=== PATIENT | male | born 1935 | race Caucasian/White ===

== ENCOUNTER 2018-02-20 12:17 | Inpatient (IN) | payer MEDICARE, BC ==
[~2018-02-20] VITALS: Ht 188 cm; Wt 88.5 kg
--- NOTE | ~2018-02-20 | RHP ---
PATIENT: MINDY DE LUNA MEDICAL RECORD: [id number] ACCOUNT: [id number] LOCATION:[id number] : 37 ADMISSION DATE: 02/20/18 REHABILITATION HISTORY AND PHYSICAL EXAMINATION POST ADMISSION PHYSICIAN EXAMINATION DATE OF ADMISSION TO THE REHAB: 02/20/2018 ADMITTING DIAGNOSES: Multiple unstable displaced posterolateral rib fractures 3 through 7 status post fall. HISTORY OF PRESENT ILLNESS: The patient is an 83-year-old gentleman admitted to inpatient rehab facility from [facility] in [place] with major medical trauma secondary to multiple unstable posterior rib fractures from 3 through 7, left hemopneumothorax, acute hypoxic respiratory failure and basilar infiltrates after fall. He is an 83-year-old gentleman who lives at home with his family who was completely independent prior to this hospitalization. He was admitted to [facility] after a fall at home from standing position. He was seen in [place] where he was found to have a left pneumothorax, left rib fractures. PAST MEDICAL HISTORY: Significant for diabetes, hypertension, history of DVT, history of carcinoma of the larynx, lung cancer, bladder cancer, ileal conduit, and peripheral vascular disease. He has also got a history of fem-fem bypass and left groin infection. Dr. Gonzales admitted and chest tube was placed. He developed acute respiratory failure which required high flow Vapotherm for several days in the ICU. He continued to receive q.6 hours updrafts. He is currently on 2 liters nasal cannula with humidification. He is working with incentive spirometry to promote deep breathing and oxygenation. ABGs on 02/18/18 through 02/19/18 revealed a pO2 in the 70s. He states he is feeling much better and the pain is a 2/10. He is minimum to max assist with PT and OT. He has ambulated 4 feet times 3. On 02/13/18, he has been up in the chair via the ICU nursing, the nurse observed. On 02/20/18, he transferred out of bed with mod assist, transfer with mod assist and up to chair with O2 sats in 91%. His BP has been stable. His heart rate has been okay. His left chest incision and drain site with dressing intact and look good. His MD requested rehab prior to going home. COMORBIDITIES: In this patient include hemothorax requiring chest tube, hypoxic respiratory failure, subcutaneous air in his left chest, pleural effusions, hypoxia, fever, falls, left chest trauma, pneumothorax, hypertension, severe malnutrition, carcinoma of the larynx, lung cancer, bladder cancer, and critical illness myopathy. PAST MEDICAL HISTORY: Significant for diabetes. He has got a history of DVT, hypertension, carcinoma of the larynx, lung cancer, bladder cancer, peripheral vascular disease. PAST SURGICAL HISTORY: Includes a fem-fem bypass. He has had chest tube placement. ALLERGIES: No known drug allergies. CURRENT MEDICATIONS: Include vitamin C 500 mg daily, multivitamin daily, Glucophage 500 mg b.i.d. with meals, glipizide 10 mg b.i.d. q.a.c. He is on Lotrimin to apply daily. He is on trazodone 50 mg q.h.s., Ultram 50 mg q.4 HISTORY AND PHYSICAL [id number] DE LUNA,MINDY hours p.r.n. pain, Januvia 100 mg q.h.s., Protonix 40 mg b.i.d. p.r.n., metoprolol 12.5 mg b.i.d., [place] 1 tab q.6 hours of the 7.5/325 as needed for pain, Compazine 10 mg q.6 hours p.r.n. nausea and vomiting, Dulcolax suppositories p.r.n., aspirin chewable 81 mg daily, Eliquis 5 mg b.i.d., and polyethylene glycol 17 grams in 8 ounces of water daily. HABITS: No alcohol or tobacco use. FAMILY HISTORY: Noncontributory. SOCIAL HISTORY: The patient hopes to return back home with his family. REVIEW OF SYSTEMS: GENERAL: He does complain of weakness and fatigue. HEENT: Denies cold, cough, or congestion. CARDIOVASCULAR: Denies any chest pain. PHYSICAL EXAMINATION: VITAL SIGNS: Stable, afebrile. Generally a well-developed gentleman in no acute distress, alert upon exam. HEENT: Normocephalic and atraumatic. Mucosa moist. NECK: Supple. No lymphadenopathy. LUNGS: Clear at this time. HEART: Regular rate and rhythm. ABDOMEN: Benign. EXTREMITIES: No clubbing, cyanosis or edema. NEUROLOGIC: He is intact. LABORATORY DATA: White count 4.1, H&H of 11 and 34 and platelet count is 304. His sodium is 140, potassium 3.9, BUN and creatinine of 14 and 0.8 and blood sugar is noted to be 113. ASSESSMENT: This is an 83-year-old gentleman admitted to the rehab with a working diagnosis of hemopneumothorax on the left secondary to multiple traumas to his lung and rib area. The patient has potential to make improvement. We instituted the following multidisciplinary therapies including, but not limited to physical, occupational, respiratory, speech, nutritional services, prosthetics and orthotics. Given his complex condition and risk for more complications, rehabilitation service cannot be provided at a low level of care such as [facility]ci facility. PLAN: 1. Admit to [facility] rehab for inpatient therapy to include the following disciplines: A. Physical therapy to improve gait, all transfer skills and bed mobility to modified independent level. B. Occupation therapy to improve activities of daily living to modified independent level. C. Case management to assist with discharge planning and placement options. D. Nutrition to assist with nutritional needs. E. Rehabilitation nursing to assist in monitoring the patient's underlying medical conditions and to assist with any type bowel or bladder management. 2. The patient's current medication and medical care will be continued. 3. The patient will be placed on standard fall precautions. 4. Watch for any signs or difficulty with breathing. HISTORY AND PHYSICAL [id number] MINDY DE LUNA 5. We will discuss this patient during with care team staff meeting next week. TRANSINT:[id number] Voice Confirmation ID: [id number] DOCUMENT ID: [id number] PRABHJOT notes whether there has been none or any medical/functional change since admission: - No change since preadmission screen. PRABHJOT attests patient continues to be appropriate for IRF: - Continues to be appropriate. STAS CORTEZ MD at 1411 CC: [id number] DICTATION DATE: 02/21/18 0839 LUNG PULLER: 02/21/18 0933 ADM IN [facility] [address] [id number]
[2018-02-20 20:06] VITALS: BP 111/72
[2018-02-20 21:38] VITALS: BP 111/72; BMI 25.1
[2018-02-21 06:56] LABS: BASOPHILS 0.2 % (0-2); EOSINOPHILS 4.1 % (0-7); HEMATOCRIT 33.8 % (42.0-54.0); HEMOGLOBIN 10.9 g/dL (13.5-17.5); IMMATURE GRANULOCYTES 0.5 % (0-5); LYMPHOCYTES 19.9 % (15-50); MCH 29.5 pg (26.0-34.0); MCHC 32.2 g/dL (31.0-37.0); MCV 91.4 fL (80.0-100.0); MEAN PLATELET VOLUME 9.7 fL (7.4-10.4); MONOCYTES 9.9 % (2-11); NEUTROPHILS 65.4 % (40-80); PLATELET COUNT 304 10x3/uL (130-400); RDW 13.5 % (11.5-14.5); WBC 4.1 10x3/uL (4.8-10.8)
[2018-02-21 07:06] LABS: CALC OSMOLALITY 280 mosm/kg (275-300); CALCIUM 8.7 mg/dL (8.5-10.1); CARBON DIOXIDE 27.6 mmol/L (21.0-32.0); CHLORIDE - SERUM 104 mmol/L (98-107); CREATININE - SERUM 0.8 mg/dL (0.6-1.3); GLUCOSE 113 mg/dL (74-106); POTASSIUM - SERUM 3.9 mmol/L (3.5-5.1); SODIUM 140 mmol/L (136-145); UREA NITROGEN 14 mg/dL (7-18); eGFR NON AFRICAN AMERICAN > 90 mL/min (90-120)
[2018-02-21 08:00] VITALS: BP 128/68
[2018-02-21 13:18] VITALS: Ht 188 cm; Wt 88.5 kg
[2018-02-21 20:05] VITALS: BP 118/70
[2018-02-22 06:37] LABS: BASOPHILS 0.2 % (0-2); EOSINOPHILS 2.9 % (0-7); HEMATOCRIT 33.4 % (42.0-54.0); HEMOGLOBIN 10.8 g/dL (13.5-17.5); IMMATURE GRANULOCYTES 0.8 % (0-5); MCH 29.6 pg (26.0-34.0); MCHC 32.3 g/dL (31.0-37.0); MCV 91.5 fL (80.0-100.0); MEAN PLATELET VOLUME 9.5 fL (7.4-10.4); MONOCYTES 8.6 % (2-11); NEUTROPHILS 67.5 % (40-80); PLATELET COUNT 331 10x3/uL (130-400); RBC 3.65 10x6/uL (4.20-6.10); RDW 13.7 % (11.5-14.5); WBC 5.1 10x3/uL (4.8-10.8)
[2018-02-22 07:03] LABS: CALC OSMOLALITY 281 mosm/kg (275-300); CALCIUM 8.3 mg/dL (8.5-10.1); CARBON DIOXIDE 25.1 mmol/L (21.0-32.0); CHLORIDE - SERUM 105 mmol/L (98-107); CREATININE - SERUM 0.7 mg/dL (0.6-1.3); GLUCOSE 112 mg/dL (74-106); SODIUM 140 mmol/L (136-145); UREA NITROGEN 17 mg/dL (7-18); eGFR NON AFRICAN AMERICAN > 90 mL/min (90-120)
[2018-02-22 08:00] VITALS: BP 125/66
[2018-02-22 19:00] VITALS: BP 123/73
[2018-02-23 09:27] VITALS: BP 128/67
[2018-02-23 20:24] VITALS: BP 107/63
[2018-02-24 08:56] VITALS: BP 115/70
[2018-02-24 19:43] VITALS: BP 128/71
[2018-02-25 06:28] LABS: BASOPHILS 0.2 % (0-2); EOSINOPHILS 3.2 % (0-7); HEMATOCRIT 35.3 % (42.0-54.0); HEMOGLOBIN 11.1 g/dL (13.5-17.5); IMMATURE GRANULOCYTES 0.4 % (0-5); MCH 29.6 pg (26.0-34.0); MCHC 31.4 g/dL (31.0-37.0); MCV 94.1 fL (80.0-100.0); MEAN PLATELET VOLUME 9.5 fL (7.4-10.4); MONOCYTES 9.5 % (2-11); NEUTROPHILS 65.7 % (40-80); PLATELET COUNT 353 10x3/uL (130-400); RBC 3.75 10x6/uL (4.20-6.10); RDW 14.5 % (11.5-14.5); WBC 5.6 10x3/uL (4.8-10.8)
[2018-02-25 06:54] LABS: CALC OSMOLALITY 280 mosm/kg (275-300); CALCIUM 8.5 mg/dL (8.5-10.1); CARBON DIOXIDE 22.9 mmol/L (21.0-32.0); CHLORIDE - SERUM 107 mmol/L (98-107); CREATININE - SERUM 0.7 mg/dL (0.6-1.3); GLUCOSE 90 mg/dL (74-106); POTASSIUM - SERUM 4.5 mmol/L (3.5-5.1); SODIUM 140 mmol/L (136-145); UREA NITROGEN 17 mg/dL (7-18); eGFR NON AFRICAN AMERICAN > 90 mL/min (90-120)
[2018-02-25 08:00] VITALS: BP 115/67
[2018-02-25 20:51] VITALS: BP 127/62
[2018-02-26 07:59] VITALS: BP 100/58
[2018-02-26 19:23] VITALS: BP 107/64
[2018-02-27 08:00] LABS: BASOPHILS 0.1 % (0-2); EOSINOPHILS 0.1 % (0-7); HEMATOCRIT 36.4 % (42.0-54.0); HEMOGLOBIN 11.6 g/dL (13.5-17.5); IMMATURE GRANULOCYTES 0.2 % (0-5); LYMPHOCYTES 7.9 % (15-50); MCH 29.4 pg (26.0-34.0); MCHC 31.9 g/dL (31.0-37.0); MCV 92.2 fL (80.0-100.0); MEAN PLATELET VOLUME 9.2 fL (7.4-10.4); MONOCYTES 4.2 % (2-11); NEUTROPHILS 87.5 % (40-80); PLATELET COUNT 312 10x3/uL (130-400); RBC 3.95 10x6/uL (4.20-6.10); RDW 14.7 % (11.5-14.5); WBC 14.2 10x3/uL (4.8-10.8)
[2018-02-27 08:19] LABS: CALC OSMOLALITY 278 mosm/kg (275-300); CALCIUM 9.4 mg/dL (8.5-10.1); CARBON DIOXIDE 21.7 mmol/L (21.0-32.0); CHLORIDE - SERUM 104 mmol/L (98-107); CREATININE - SERUM 0.8 mg/dL (0.6-1.3); GLUCOSE 112 mg/dL (74-106); SODIUM 138 mmol/L (136-145); UREA NITROGEN 17 mg/dL (7-18); eGFR NON AFRICAN AMERICAN > 90 mL/min (90-120)
[2018-02-27 08:28] VITALS: BP 113/47
[2018-02-27 20:05] VITALS: BP 123/71
[2018-02-28 08:00] VITALS: BP 104/60
[2018-02-28 20:00] VITALS: BP 115/59
[2018-03-01 07:11] LABS: BASOPHILS 0.1 % (0-2); EOSINOPHILS 0.2 % (0-7); HEMATOCRIT 32.1 % (42.0-54.0); HEMOGLOBIN 10.5 g/dL (13.5-17.5); IMMATURE GRANULOCYTES 0.3 % (0-5); LYMPHOCYTES 7.6 % (15-50); MCH 29.8 pg (26.0-34.0); MCHC 32.7 g/dL (31.0-37.0); MCV 91.2 fL (80.0-100.0); MEAN PLATELET VOLUME 9.7 fL (7.4-10.4); NEUTROPHILS 87.8 % (40-80); PLATELET COUNT 280 10x3/uL (130-400); RBC 3.52 10x6/uL (4.20-6.10); RDW 14.6 % (11.5-14.5); WBC 11.2 10x3/uL (4.8-10.8)
[2018-03-01 07:19] LABS: CALC OSMOLALITY 280 mosm/kg (275-300); CALCIUM 8.5 mg/dL (8.5-10.1); CARBON DIOXIDE 23.3 mmol/L (21.0-32.0); CHLORIDE - SERUM 105 mmol/L (98-107); CREATININE - SERUM 0.8 mg/dL (0.6-1.3); GLUCOSE 93 mg/dL (74-106); POTASSIUM - SERUM 4.1 mmol/L (3.5-5.1); SODIUM 139 mmol/L (136-145); eGFR NON AFRICAN AMERICAN > 90 mL/min (90-120)
[2018-03-01 07:20] LABS: UREA NITROGEN 22 mg/dL (7-18)
[2018-03-01 08:24] VITALS: BP 102/54
[2018-03-01 19:30] VITALS: BP 109/63
[2018-03-02 08:00] VITALS: BP 108/58
[2018-03-02 19:54] VITALS: BP 107/56
[2018-03-03 08:02] VITALS: BP 113/68
[2018-03-03 20:24] VITALS: BP 115/53
[2018-03-04 06:11] LABS: BASOPHILS 0.1 % (0-2); HEMATOCRIT 32.1 % (42.0-54.0); HEMOGLOBIN 10.3 g/dL (13.5-17.5); IMMATURE GRANULOCYTES 0.4 % (0-5); LYMPHOCYTES 8.2 % (15-50); MCH 29.3 pg (26.0-34.0); MCHC 32.1 g/dL (31.0-37.0); MCV 91.5 fL (80.0-100.0); MEAN PLATELET VOLUME 9.6 fL (7.4-10.4); MONOCYTES 7.4 % (2-11); NEUTROPHILS 82.9 % (40-80); PLATELET COUNT 264 10x3/uL (130-400); RBC 3.51 10x6/uL (4.20-6.10); RDW 14.8 % (11.5-14.5); WBC 8.4 10x3/uL (4.8-10.8)
[2018-03-04 06:27] LABS: CALC OSMOLALITY 277 mosm/kg (275-300); CALCIUM 9.3 mg/dL (8.5-10.1); CARBON DIOXIDE 26.7 mmol/L (21.0-32.0); CHLORIDE - SERUM 104 mmol/L (98-107); CREATININE - SERUM 0.6 mg/dL (0.6-1.3); POTASSIUM - SERUM 4.1 mmol/L (3.5-5.1); SODIUM 139 mmol/L (136-145); UREA NITROGEN 18 mg/dL (7-18); eGFR NON AFRICAN AMERICAN > 90 mL/min (90-120)
[2018-03-04 06:28] LABS: GLUCOSE 70 mg/dL (74-106)
[2018-03-04 08:14] VITALS: BP 105/61
[2018-03-04 21:08] VITALS: BP 102/44
[2018-03-05 08:00] VITALS: BP 103/71
[2018-03-05 19:56] VITALS: BP 118/50
[2018-03-06 05:59] LABS: BASOPHILS 0.3 % (0-2); EOSINOPHILS 3.8 % (0-7); HEMATOCRIT 30.9 % (42.0-54.0); IMMATURE GRANULOCYTES 0.3 % (0-5); LYMPHOCYTES 19.5 % (15-50); MCH 29.3 pg (26.0-34.0); MCHC 32.4 g/dL (31.0-37.0); MCV 90.6 fL (80.0-100.0); MEAN PLATELET VOLUME 9.5 fL (7.4-10.4); MONOCYTES 11.2 % (2-11); NEUTROPHILS 64.9 % (40-80); PLATELET COUNT 285 10x3/uL (130-400); RBC 3.41 10x6/uL (4.20-6.10); RDW 14.6 % (11.5-14.5)
[2018-03-06 06:17] LABS: WBC 3.7 10x3/uL (4.8-10.8)
[2018-03-06 06:42] LABS: CALC OSMOLALITY 276 mosm/kg (275-300); CALCIUM 9.1 mg/dL (8.5-10.1); CARBON DIOXIDE 26.7 mmol/L (21.0-32.0); CHLORIDE - SERUM 104 mmol/L (98-107); CREATININE - SERUM 0.6 mg/dL (0.6-1.3); POTASSIUM - SERUM 3.9 mmol/L (3.5-5.1); SODIUM 139 mmol/L (136-145); UREA NITROGEN 16 mg/dL (7-18); eGFR NON AFRICAN AMERICAN > 90 mL/min (90-120)
[2018-03-06 06:44] LABS: GLUCOSE 60 mg/dL (74-106)
[2018-03-06 08:00] VITALS: BP 95/56
[2018-03-06] MEDS ORDERED: ELIQUIS5 MG PO (08:41)
[2018-03-06] MEDS ORDERED: LOPRESSOR25 MG PO (08:41)
[2018-03-06] MEDS ORDERED: ASPIRIN81 MG PO (08:41)
[2018-03-06] MEDS ORDERED: ULTRAM50 MG PO (08:41)
[2018-03-06] MEDS ORDERED: PROTONIX40 MG PO (08:42)
[2018-03-06] MEDS ORDERED: GLIPIZIDE10 MG PO (08:42)
[2018-03-06] MEDS ORDERED: TRAZODONE HCL50 MG PO (08:42)
[2018-03-06] MEDS ORDERED: NORCO 7.5/325 T1 TA1 PO (08:42)
[2018-03-06] MEDS ORDERED: JANUVIA100 MG PO (08:42)
[2018-03-06] MEDS ORDERED: GLUCOPHAGE500 MG PO (08:43)
[2018-03-06 19:54] VITALS: BP 110/64
[2018-03-07 08:00] VITALS: BP 106/58
== END 2018-03-07 14:11 | disposition home health service (06) | DRG 199 ==
LOC: D.REHAB 12:17
PROVIDERS: Emergency Medicine
DX: S27.2XXA Traumatic hemopneumothorax, initial encounter (principal); E43 Unspecified severe protein-calorie malnutrition; J96.01 Acute respiratory failure with hypoxia; J90 Pleural effusion, not elsewhere classified; G72.81 Critical illness myopathy; C34.90 Malignant neoplasm of unspecified part of unspecified bronchus or lung; C78.39 Secondary malignant neoplasm of other respiratory organs; C79.11 Secondary malignant neoplasm of bladder; S22.42XD Multiple fractures of ribs, left side, subsequent encounter for fracture with routine healing; W19.XXXD Unspecified fall, subsequent encounter; I10 Essential (primary) hypertension; R50.9 Fever, unspecified